=== PATIENT | male | born 1955 | race Caucasian/White ===

== ENCOUNTER → 2019-08-23 16:24 | Outpatient (CLI) | payer OTHER, MEDICAID, SELFPAY ==
--- NOTE | 2019-08-23 | DI.RAD.S_ITS ---
PROCEDURE: XR CHEST 2V INDICATIONS: Chest pain, dyspnea TECHNIQUE: 2 views of the chest were acquired. COMPARISON: None. FINDINGS: Surgical changes and devices: None. Lungs and pleura: There may be a small developing area of airspace disease at the right medial lung base. No large effusion or definite pneumothorax is appreciated. Scarring within the lung apices. Mediastinum: Mediastinal contours are normal. Heart size is normal. Bones and chest wall: No suspicious bony abnormalities. Soft tissues appear unremarkable. IMPRESSION: Possible developing right lower lobe atelectasis versus pneumonia. Please correlate clinically. Note: Findings discussed with Dr. Clarke at approximately 1712 hours (PST) on 08/23/19. Dictated by: Frank Rios M.D. on 08/23/2019 at 16:10 Approved by: Frank Rios M.D. on 08/23/2019 at 16:13
[2019-08-23 18:35] LABS: Estimated Glomerular Filt Rate > 60.0 mL/min (>60)
[2019-08-23 19:25] LABS: D Dimer 596 ng/mL (<230)
== END ==
PROVIDERS: PCP Internal Medicine; Referring Provider Internal Medicine; Visit Provider Internal Medicine
DX: R07.9 Chest pain, unspecified (principal); R06.00 Dyspnea, unspecified; Z79.899 Other long term (current) drug therapy
CPT/HCPCS: 36415; 71046; 82565; 85379

== ENCOUNTER → 2019-08-24 13:16 | Outpatient (CLI) | payer OTHER, MEDICAID, SELFPAY ==
--- NOTE | 2019-08-24 13:23 | DI.CT.S_ITS ---
PROCEDURE: CT ANGIO CHEST INDICATIONS: Abnormal coagulation profile TECHNIQUE: After the administration of intravenous contrast, 2 mm thick sections acquired from the pulmonary apices to the posterior costophrenic angles. 3-dimensional maximum intensity projection (MIP) coronal and sagittal reformats were then acquired through the thorax. For radiation dose reduction, the following was used: automated exposure control, adjustment of mA and/or kV according to patient size. COMPARISON: [facility], CR, XR CHEST 2V, 08/23/2019, 16:26. FINDINGS: Image quality: Excellent. Pulmonary arteries: Pulmonary arteries are normal in size, and demonstrate no intraluminal filling defects to suggest central pulmonary embolism. Lungs and pleura: Lungs are clear. No pleural effusions or pneumothorax. Central and peripheral airways are patent. Mediastinum: Heart size is normal, without pericardial effusion. No mediastinal or hilar adenopathy. Thoracic aorta is normal in caliber and enhancement. Esophagus is normal in caliber, without hiatal hernia. Bones and chest wall: No suspicious bony lesions. Ribs and thoracic spine appear intact throughout. Thyroid gland appears normal where well visualized. No axillary or supraclavicular adenopathy. Abdomen: Visualized upper abdominal solid organs appear normal in the early arterial phase of enhancement. IMPRESSION: Normal for age, source of abnormal coagulation profile is not identified. No pulmonary embolus is found. Dictated by: Angelo Lion M.D. on 08/24/2019 at 13:52 Approved by: Angelo Lion M.D. on 08/24/2019 at 13:54
== END ==
PROVIDERS: PCP Internal Medicine; Referring Provider Internal Medicine; Visit Provider Internal Medicine
DX: R79.1 Abnormal coagulation profile (principal)
CPT/HCPCS: 71275; Q9967

== ENCOUNTER 2019-08-24 15:44 | Observation (INO) | payer OTHER, MEDICAID, SELFPAY ==
[2019-08-24] VITALS (7 sets, daily range): BP systolic 102–142; BP diastolic 63–79; PULSE 51–63; RESP 16–26; TEMP 36.2; O2SAT 95–98; BMI 29.0
--- NOTE | 2019-08-24 16:03 | ED_ITS ---
HPI - Chest Pain General Chief Complaint: Chest Pain Stated Complaint: HEART ISSUES Time Seen by Provider: 08/24/19 16:03 Source: patient Mode of arrival: Ambulatory History of Present Illness HPI narrative: Otherwise healthy 63-year-old gentleman presents with 6 weeks of worsening exertional dyspnea. Symptoms started with fevers myalgias dyspnea and a concern that he had Covid19. He was tested for this 3 weeks ago and it returned negative. He reports increasing exertional dyspnea was able to walk rapidly for a number of mi 6 weeks ago and yesterday noted that he was barely able to cross the room without developing chest tightness pain through to his back and dyspnea. Symptoms are persistent with normal vital signs including ox ygen saturations in the upper 90s on room air with continued subjective dyspnea. He saw his primary care physician who did an EKG which was unremarkable as well as a chest x-ray which suggested the possibility of a developing right lower lobe pneumonia versus simple atelectasis.. She checked a D-dimer which was elevated and a CT angiogram of the chest was performed today which revealed no pulmonary emboli and no pulmonary parenchymal disease to suggest resolving pneumonia, developing pneumonia or a Covid type pneumonia. His doctor is suggested an outpatient nuclear medicine stress test however the earliest this can be arranged is at least 2 weeks away and with his progressive symptomatic exertional dyspnea patient and his primary care provider felt that ER evaluation and possible hospital admission for further cardiac evaluation would be appropriate. At rest in the emergency room he is complaining of subjective dyspnea, again saturations in the 97% range on room air, he reports that chest tightness worse on the left side radiating up to the left arm at rest with a normal EKG. Pain and tightness are not worse with position and are not reproducible with palpation. He reports no reflux type symptoms, no nausea, diaphoresis, vomiting or diarrhea. He does note increasing confusion. Apparently was in a business meeting yesterday and his noted that he was very scattered and not making sense. In driving home from [place] to [place] he reports getting lost and actually having to ask directions. He also reports significant fatigue, as well as intermittent dizziness but does not describe any peripheral edema or orthopnea He notes that his mother had a 3 way bypass surgery in her early 60s. His father early from emphysema. Himself is a lifelong nonsmoker. Related Data Allergies Allergy/AdvReac Type Severity Reaction Status Date / Time No Known Drug Allergies Allergy Verified 08/24/19 17:25 Review of Systems Review of Systems Narrative: Pertinent positive and negative findings as per HPI Remainder of review of systems is otherwise unremarkable for ENT: No sore throat, neck pain, ear pain, no change to taste or smell : Dysuria, hematuria, flank pain MS: joint swelling or warmth Skin: Rashes, nonhealing lesions Neuro: Syncope, tingling Psych: Depression, anxiety, suicidal ideation Endocrine: Fatigue, heat or cold intolerance, very dry skin Heme: Easy bruising or bleeding Allergy: Seasonal rhinorrhea, itchy eyes Patient History Medical History Healthy adult (Acute) Social History Smoking Status: Never smoker Smoking Status: Never smoker alcohol intake frequency: 0-2 drinks per day Exam Narrative Exam Narrative: General: Healthy appearing, in no acute distress. Able to give a complete and coherent history. Well-nourished well-developed HEENT: Moist mucous membranes, normal sclera with reactive pupils, Neck: No JVD, supple Respiratory: Lungs are clear to auscultation, no wheezing no rales no rhonchi. Full and symmetrical air movement Cardiac: Regular rate and rhythm no murmurs no bruits Abdomen: Soft nontender good bowel tones, no flank pain Skin: Warm and dry, no rashes Neurologic: Grossly neurologically intact with no obvious asymmetries or abnormalities Extremities: No trauma, well perfused Psych: Cooperative, appropriate insight and affect Initial Vital Signs Initial Vital Signs: Vital Signs Pulse Rate 63 08/24/19 15:47 Respiratory Rate 16 08/24/19 15:47 Blood Pressure 142/79 H 08/24/19 15:47 Pulse Oximetry 98 08/24/19 15:47 Course Orders Ordered: ED Orders 08/24/19 16:01 EKG-12 Lead Stat 08/24/19 17:00 Complete Blood Count AUTO DIFF Stat Comprehensive Metabolic Panel Stat Lipase Stat Magnesium Stat Troponin & CK Cardiac Panel Stat Sodium Chloride (Normal Saline 0.9%) 1,000 mls @ 150 mls/hr IV CONT KENNY Last Admin: 08/24/19 17:13 Dose: 150 mls/hr Documented by: VIRAJ Discontinued Medications Aspirin (Aspirin Chew) 324 mg PO NOW ONE Stop: 08/24/19 16:33 Last Admin: 08/24/19 17:06 Dose: 324 mg Documented by: VIRAJ Nitroglycerin (Nitrostat) 0.4 mg SL NOW ONE Stop: 08/24/19 16:34 Last Admin: 08/24/19 17:14 Dose: 0.4 mg Documented by: VIRAJ Nitroglycerin (Nitro-Bid) 0.5 inch TOP NOW ONE Stop: 08/24/19 17:25 Last Admin: 08/24/19 17:29 Dose: 0.5 inch Documented by: VIRAJ Vital Signs Vital signs: Vital Signs - 8 hr 08/24/19 15:47 08/24/19 17:29 Pulse Rate 63 60 Respiratory Rate 16 Blood Pressure 142/79 H 102/76 Pulse Oximetry 98 MDM - Chest Pain Medical Records Data Attestation: I reviewed the patient's medical records. Lab Data Attestation: I reviewed the patient's lab results. Result diagrams: 08/24/19 17:00 08/24/19 17:00 Labs: Lab Results 08/24/19 08/24/19 08/24/19 Range/Units 17:00 17:00 17:00 WBC 7.1 (4.5-11.0) X10^3/uL RBC 5.07 (4.5-5.9) X10^6/uL Hgb 15.0 (13.5-17.5) g/dL Hct 44.8 (41-53) % MCV 88.4 (80-100) fL MCH 29.5 (26-34) PG MCHC 33.4 (30-36) % RDW 13.5 (11.6-14.8) % Plt Count 197 (150-400) X10^3/uL Neut % (Auto) 51.4 (50-75) % Lymph % (Auto) 35.9 (25-40) % [place] % (Auto) 9.3 (3-14) % Eos % (Auto) 2.1 (2-4) % Baso % (Auto) 1.3 (0-2) % Neut # (Auto) 3700 (8599-0145) /uL Lymph # (Auto) 2500 (3198-5785) /uL [place] # (Auto) 700 (0-900) /uL Eos # (Auto) 100 (0-450) /uL Baso # (Auto) 100 (0-100) /uL Sodium 138 Cancelled (137-145) mmol/L Potassium 4.6 Cancelled (3.4-5.1) mmol/L Chloride 105 Cancelled (98-107) mmol/L Carbon Dioxide 25 Cancelled (22-32) mmol/L BUN 22 H Cancelled (9-20) mg/dL Creatinine 0.91 Cancelled (0.66-1.25) mg/dL Estimated GFR > 60.0 Cancelled (>60) mL/min BUN/Creatinine Ratio 24.2 H Cancelled (6-22) Glucose 154 H Cancelled (80-110) mg/dL Calcium 9.2 Cancelled (8.4-10.2) mg/dL Magnesium 1.9 Cancelled (1.6-2.3) mg/dL Total Bilirubin 0.8 Cancelled (0.2-1.3) mg/dL AST 41 Cancelled (17-59) IU/L ALT 32 Cancelled (<50) IU/L Alkaline Phosphatase 53 Cancelled (38-126) U/L Total Creatine Kinase 38 L (55-170) U/L CK-MB (CK-2) TNP CK-MB (CK-2) Rel Index TNP Troponin I < 0.012 (0.01-0.034) ng/mL Total Protein 7.8 Cancelled (6.3-8.2) g/dL Albumin 4.3 Cancelled (3.5-5.0) g/dL Globulin 3.5 Cancelled (1.7-4.1) g/dL Albumin/Globulin Ratio 1.2 Cancelled (1.0-2.8) Lipase 63 (23-300) U/L Urine Dip Bedside Urine Glucose Negative Bedside Urine Bilirubin - Negative Bedside Urine Ketone - Negative Urine Specific [place] 1.015 Bedside Urine Occult Blood - Negative Bedside Urine pH 5.5 Bedside Urine Protein - Negative Bedside Urine Urobilinogen - Negative Bedside Urine Nitrite - Negative Bedside Urine Leukocytes - Negative Esterase Imaging Data Chest x-ray August 22: Radiologist's Impression: IMPRESSION: Possible developing right lower lobe atelectasis versus pneumonia. Please correlate clinically. Note: Findings discussed with Dr. Clarke at approximately 1712 hours (PST) on 08/23/19. Dictated by: Frank Rios M.D. on 08/23/2019 at 16:[address]: Radiologist's Impression: IMPRESSION: Normal for age, source of abnormal coagulation profile is not identified. No pulmonary embolus is found. Dictated by: Angelo Lion M.D. on 08/24/2019 at 13:52 ECG Data Attestation: I personally reviewed and interpreted this ECG as follows: Interpretation: Normal sinus rhythm at a rate of [address] T wave changes Normal axis normal intervals MDM Narrative Medical decision making narrative: Exertional dyspnea progressive to the point t hat he is having difficulty walking across the room over a period of 6 weeks. Because of these symptoms initially he was concerned that he had developed Covid19, the initial test was negative . Will test again today with the fatigue confusion and weakness persistent symptoms are conceivable. He clearly does not have a COVID-19 pneumonia nor a pulmonary embolism. Given his progressive symptoms and symptoms at rest now expedited cardiac risk stratification with admission nuclear medicine study and possible echocardiogram are appropriate. 1725 single sublingual nitro has helped with the chest pressure/tightness and dyspnea sensation. 1/2 inch of nitropaste is placed. 1755 Dr. Goldstein accepts admit, obs status for CP work up. Discharge Plan Departure Patient Disposition: Admitted as Observation Clinical Impression: Exertional dyspnea Chest pain Qualifiers: Chest pain type: unspecified Qualified Code(s): R07.9 - Chest pain, unspecified Referrals: Xiao Salinas MD [Primary Care Provider] -
[2019-08-24] MEDS: ASPIRIN 81 MG CHEW TAB 324 MG PO (17:06)
[2019-08-24] MEDS: SODIUM CHLORIDE 0.9% 1,000 ML 150 ML IV (17:13)
[2019-08-24] MEDS: NITROGLYCERIN 0.4 MG SL TAB SL (17:14)
[2019-08-24 17:25] LABS: Add Manual Diff / Slide Review NO; Basophils Absolute Auto 100 /uL (0-100); Basophils Percent Auto 1.3 % (0-2); Eosinophils Absolute Auto 100 /uL (0-450); Eosinophils Percent Auto 2.1 % (2-4); Hematocrit 44.8 % (41-53); Lymphocytes Absolute Auto 2500 /uL (1100-4500); Lymphocytes Percent Auto 35.9 % (25-40); Mean Corpuscular HGB Conc 33.4 % (30-36); Mean Corpuscular Hemoglobin 29.5 PG (26-34); Mean Corpuscular Volume 88.4 fL (80-100); Monocytes Absolute Auto 700 /uL (0-900); Monocytes Percent Auto 9.3 % (3-14); Neutrophils Absolute Auto 3700 /uL (1500-7000); Neutrophils Percent Auto 51.4 % (50-75); Platelet Count 197 X10^3/uL (150-400); Red Blood Cell Count 5.07 X10^6/uL (4.5-5.9); Red Cell Distribution Width 13.5 % (11.6-14.8); White Blood Cell Count 7.1 X10^3/uL (4.5-11.0)
[2019-08-24] MEDS: NITROGLYCERIN OINT 1 INCH/GM OINT...G. 0.5 INCH TOP (17:29)
[2019-08-24 17:31] LABS: Alanine Aminotransferase 32 IU/L (<50); Albumin 4.3 g/dL (3.5-5.0); Albumin Globulin Ratio 1.2 (1.0-2.8); Alkaline Phosphatase 53 U/L (38-126); Aspartate Aminotransferase 41 IU/L (17-59); BUN Creatinine Ratio 24.2 (6-22); Bilirubin Total 0.8 mg/dL (0.2-1.3); Blood Urea Nitrogen 22 mg/dL (9-20); Calcium 9.2 mg/dL (8.4-10.2); Carbon Dioxide 25 mmol/L (22-32); Chloride 105 mmol/L (98-107); Creatine Kinase 38 U/L (55-170); Estimated Glomerular Filt Rate > 60.0 mL/min (>60); Globulin 3.5 g/dL (1.7-4.1); Glucose 154 mg/dL (80-110); Lipase 63 U/L (23-300); Magnesium 1.9 mg/dL (1.6-2.3); Sodium 138 mmol/L (137-145); Total Protein 7.8 g/dL (6.3-8.2)
[2019-08-24 17:32] LABS: HEMOLYSIS 122 (0-50); Potassium 4.6 mmol/L (3.4-5.1)
[2019-08-24 17:42] LABS: Troponin I < 0.012 ng/mL (0.01-0.034)
--- NOTE | 2019-08-24 20:56 | DI.ECHO.S_ITS ---
[facility] +---------+ [facility] +---------+ : : [address] : : : : [id number] : : : : Phone: [phone]+ Echocardiogram Report + + :Name: EDISON CASTANEDA Study Date: 08/25/2019 Height: 67 in : :[facility] Weight: 185 lb : : Gender: Male BSA: 2.0 m2 : :: 1955 Age: 63 yrs BP: 123/58 mmHg: :Reason For Study: chest pain : :Ordering Physician: Jason : :Hospitalist Performed By: Rossi Gandara : :Referring: MUNDO ACEVEDO : + + Interpretation Summary The ejection fraction is estimated to be 60-65%. There is mild aortic regurgitation. There is mild tricuspid regurgitation. The right ventricular systolic pressure is estimated to be at least 18 mmHg based on an estimated right atrial pressure of 3 mm Hg. The ascending aorta is mildly enlarged. Procedure: A two-dimensional transthoracic echocardiogram with color flow and Doppler was performed. The study quality was technically adequate. There is no prior echocardiogram noted for this patient. The patient was in normal sinus rhythm during the exam. Left Ventricle: The left ventricle is normal in size. Left ventricular wall thickness is mildly increased. The ejection fraction is estimated to be 60- 65%. There are no focal wall motion abnormalities. Right Ventricle: The right ventricle is at the upper limits of normal in size. The right ventricular systolic function is normal. Atria: The left atrial size is normal. Right atrial size is normal. There is no Doppler evidence for an interatrial shunt. Mitral Valve: The mitral valve is normal in structure and function. There is trace mitral regurgitation. Aortic Valve: The aortic valve is trileaflet. The aortic valve opens well. There is no aortic valve stenosis. There is mild aortic regurgitation. Tricuspid Valve: The tricuspid valve is normal in structure and function. There is mild tricuspid regurgitation. The right ventricular systolic pressure is estimated to be at least 18 mmHg based on an estimated right atrial pressure of 3 mm Hg. Pulmonic Valve: The pulmonic valve is normal in structure and function. There is no pulmonic valvular regurgitation. Great Vessels: The aortic root is normal size. The ascending aorta is mildly enlarged. The IVC is of normal diameter and collapses greater than 50% with a sniff. This suggests a low right atrial pressure of 3 mm Hg. Pericardium/ Pleura There is no pericardial effusion. There is no pleural effusion. MMode/2D Measurements & Calculations LVIDd: 3.9 cm LVOT diam: 2.0 cm LVIDs: 2.8 cm Ao root diam: 3.1 cm FS: 30.0 % asc Aorta Diam: 3.7 cm EPSS: 0.35 cm Ao Arch Diam (Prox Trans): 3.4 cm IVSd: 1.1 cm LVPWd: 1.2 cm LV gutierrez. diameter/BSA (cm/m^2): 2.0 LV sys. diameter/BSA (cm/m^2): 1.4 LA A2 area: 16.7 cm2 RA long axis: 5.3 cm LA A4 area: 15.2 cm2 RA area: 16.6 cm2 LA length (vol): 4.9 cm RA vol: 44.3 ml LA vol: 44.4 ml RA : 22.6 ml/m2 LA vol index: 22.7 ml/m2 RVD1 (basal): 4.0 cm TAPSE: 2.2 cm Doppler Measurements & Calculations Ao V2 max: 143.4 cm/sec LVOT Max Jose Maria: 140.3 cm/sec Ao V2 mean: 87.3 cm/sec LV V1 max P.9 mmHg Ao max P.2 mmHg LV V1 VTI: 26.7 cm Ao mean P.7 mmHg CRISTAL(I,D): 3.3 cm2 Ao V2 VTI: 25.2 cm CRISTAL(V,D): 3.0 cm2 sev ratio: 1.1 CRISTAL indexed to BSA (cm^2/m^2): 1.7 AI P1/2t: 846.7 msec AI dec slope: 134.1 cm/sec2 MV E max jose maria: 57.1 cm/sec TR max jose maria: 199.0 cm/sec MV A max jose maria: 54.6 cm/sec TR max P.8 mmHg MV E/A: 1.0 PA V2 max: 73.2 cm/sec Med Peak E' Jose Maria: 8.5 cm/sec PA V2 mean: 46.2 cm/sec E/E' med: 6.7 PA mean P.0 mmHg Lat Peak E' Jose Maria: 10.2 cm/sec PA pr(Accel): 13.9 mmHg E/E' lat: 5.6 E/e' average: 6.1 MV dec time: 0.24 sec SV(LVOT): 82.1 ml Reading Physician:02:[id number] PM
--- NOTE | 2019-08-24 22:10 | PC.NURSE ---
Pt is A and O x 4, VSS. Pt denies chest pain at this time. He denies all pain and N. LS clear, HR irr irr. Pt refused skin assessment (there is nothing wrong with my skin, let's not be silly) and removing his jeans. He tolerated a snack and beverage. Last BM today and normal per patient. Pt states that he was treated for PNA by a physician in [place], where he lives. Pt states he thinks he and his have COVID 19. He was tested in [place] approx 7 days ago, and the results were negative. He believes he contracted the virus 6 weeks ago at the [employer] in [place].
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
[2019-08-24 23:23] LABS: Troponin I < 0.012 ng/mL (0.01-0.034)
[2019-08-25] VITALS (9 sets, daily range): BP systolic 102–123; BP diastolic 54–78; PULSE 54–78; RESP 16–18; TEMP 36.3–36.9; O2SAT 94–97
[2019-08-25 01:07] LABS: Adenovirus Not Detected (Not Detect); Bordetella pertussis Not Detected (Not Detect); Chlamydophila pneumoniae Not Detected (Not Detect); Coronavirus 229E Not Detected (Not Detect); Coronavirus HKU1 Not Detected (Not Detect); Coronavirus NL 63 Not Detected (Not Detect); Coronavirus OC43 Not Detected (Not Detect); Human Metapneumovirus Not Detected (Not Detect); Human Rhinovirus/Enterovirus Not Detected (Not Detect); Influenza A Not Detected (Not Detect); Influenza B Not Detected (Not Detect); Mycoplasma pneumoniae Not Detected (Not Detect); Parainfluenza Virus 1 Not Detected (Not Detect); Parainfluenza Virus 2 Not Detected (Not Detect); Parainfluenza Virus 3 Not Detected (Not Detect); Parainfluenza Virus 4 Not Detected (Not Detect); Respiratory Syncytial Virus Not Detected (Not Detect)
[2019-08-25 05:52] LABS: Add Manual Diff / Slide Review NO; Basophils Absolute Auto 100 /uL (0-100); Basophils Percent Auto 1.3 % (0-2); Eosinophils Absolute Auto 100 /uL (0-450); Eosinophils Percent Auto 2.2 % (2-4); Hematocrit 42.1 % (41-53); Hemoglobin 14.2 g/dL (13.5-17.5); Lymphocytes Absolute Auto 2000 /uL (1100-4500); Lymphocytes Percent Auto 29.8 % (25-40); Mean Corpuscular HGB Conc 33.7 % (30-36); Mean Corpuscular Hemoglobin 29.8 PG (26-34); Mean Corpuscular Volume 88.3 fL (80-100); Monocytes Absolute Auto 800 /uL (0-900); Monocytes Percent Auto 11.7 % (3-14); Neutrophils Absolute Auto 3800 /uL (1500-7000); Platelet Count 170 X10^3/uL (150-400); Red Blood Cell Count 4.77 X10^6/uL (4.5-5.9); Red Cell Distribution Width 13.6 % (11.6-14.8); White Blood Cell Count 6.8 X10^3/uL (4.5-11.0)
[2019-08-25 06:10] LABS: Blood Urea Nitrogen 20 mg/dL (9-20); Calcium 8.9 mg/dL (8.4-10.2); Carbon Dioxide 21 mmol/L (22-32); Chloride 110 mmol/L (98-107); Cholesterol 146 mg/dL (140-199); Estimated Glomerular Filt Rate > 60.0 mL/min (>60); Glucose 115 mg/dL (80-110); HDL Cholesterol 24 mg/dL (40-60); HEMOLYSIS 23 (0-50); LDL Cholesterol Calculated 92 mg/dL (<100); Magnesium 1.9 mg/dL (1.6-2.3); Potassium 4.2 mmol/L (3.4-5.1); Sodium 138 mmol/L (137-145); Triglycerides 148 mg/dL (35-150)
[2019-08-25 06:43] LABS: Hemoglobin A1C% w Est Avg Glu 5.8 % (4.0-6.0)
[2019-08-25 06:56] LABS: TSH w/ Reflex to FT4 2.77 uIU/mL (0.47-4.68)
[2019-08-25 07:49] LABS: Creatine Kinase 24 U/L (55-170)
[2019-08-25 08:02] LABS: Troponin I < 0.012 ng/mL (0.01-0.034)
[2019-08-25] MEDS: HEPARIN 5,000 UNIT/ML VIAL 5000 UNIT SUBCUT (08:33)
[2019-08-25] MEDS: FAMOTIDINE 20 MG TABLET PO (08:33)
[2019-08-25] MEDS: NITROGLYCERIN OINT 1 INCH/GM OINT...G. 0.5 INCH TOP ×2 (08:34→15:12)
[2019-08-25] MEDS: SODIUM CHLORIDE 0.9% FLUSH 10 ML IV (08:37)
--- NOTE | 2019-08-25 13:41 | CM.DANOTE ---
Patient is a 63 year old male who was admitted on 08/24/19 for Heart Issues. Pt has [facility] and [facility] for insurance and his PCP is Dr. Xiao Salinas. EMR was reviewed. Per MD, pt with chest pain r/o and currently observation for symptoms and Echo and Stress test ordered. No COVID test needed at this time. 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 Pt has been weaker the past couple weeks and feels that he may be COVID 19 positive although he previously had negative test results. Pt does not anticipate any SW needs at d/c and preference is home once he feels better and spouse can provide transport. Plan: SW to follow closely after Echo and Stress Test to confirm he is safe for d/c home with supportive spouse. 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 No Advance Directives on File No History Provided By Patient,Medical Record Has Patient been admitted in last 30 No days? Prior Living Arrangements House Household Members spouse,children Type of transporation used prior to Drives own vehicle admit Independent with ADL's Yes Is patient alert and oriented? Yes Comment Likely home at d/c pending Echo and Stress test Barriers to Discharge No Discharge Plan Home Transportation Arrangement Spouse available to provide transport home Referrals Initiated None needed Review Status In Process Please Provide Date Initial DC 08/25/19 Assessment Was Performed Next Review Type Continued Stay Review
--- NOTE | 2019-08-25 14:11 | PC.NURSE ---
Patient back from stress test, denies chest pain and nausea. Does report shortness of breath, which patient reports he's had for the last month. LS clear, sats on RA 95-97%.
--- NOTE | 2019-08-25 17:26 | PM.DS.1 ---
History of Present Illness History of Present Illness Date Patient Seen: 08/24/19 Chief complaint: HEART ISSUES Narrative: Written by Bebo ESCOBEDO: Mr. Mohsen Zayas is a 63-year-old male with no significant medical history who presents to the ER with progressive exertional dyspnea. The patient states that he has had worsening shortness of breath on exertion over the last 6 weeks. At baseline he has been able to walk extensively without shortness of breath and yesterday states he gets short of breath walking across the room. He states he and his have both been feeling ill with complaints of fevers, myalgias and fatigue. He tested negative for COVID-19 3 weeks ago. The patient began having left chest pain and tightness radiating to his left arm and back and was evaluated by his PCP who sent him and for imaging and was thought to be pneumonia and was prescribed azithromycin. He has taken the medication as directed with noted improvement and has had ongoing chest pain and dyspnea at rest. At the present time the patient denies fevers or chills has no headache and is no longer having dizziness. He has a slight chest pain that he describes lower chest over the left and right lower sternal order and sharp pains in the back. He denies cough and has no nausea or vomiting or heartburn. He states his last bowel movement was yesterday and reports no difficulty with urinating and does not get up at night to urinate. Upon arrival to the ER the patient is afebrile with temperature 97.2?, heart rate of 63, blood pressure 142/79 respirations are 16 and saturating 98% on room air. Chest x-ray was taken on 08/22 with radiologist's reading as possible developing right lower lobe atelectasis versus pneumonia. A CT is obtained finding no pulmonary embolism and no parenchymal disease. Twelve lead EKG finds sinus Arpan at a rate of 59, inverted T-waves in lead 3 and flat T-waves in AVF., normal axis, no block or ectopy. On laboratory analysis the patient has white count of 7.1, hemoglobin of 15.0, hematocrit of 44.8, platelets of 197. His electrolytes are all within normal limits and has a BUN of 24 and creatinine is 0.91. His nonfasting glucose is 154. His calcium of 9.2 new magnesium 1.9. His liver enzymes are all within normal limits and lipase is 63 his albumin is 4.3. His elevated D-dimer at 596. His total CK is 38 his troponin is less than 0.012. In the ER the patient is treated with aspirin 324 mg, 1 sublingual nitro and topical nitroglycerin 1/2 inch. Patient is admitted to the medicine service for rule out ACS. Discharge Providers Provider Date of admission: 08/24/19 19:37 Discharge Date: 08/29/19 Primary care physician: Xiao Salinas MD Discharge provider: Almita Hopkins DO Summary Hospital Course Discharge Diagnosis: 1. Acute atypical chest pain and dyspnea on exertion, rule out acute coronary syndrome, present on admission. Atypical chest pain resolved. 2. Prediabetes, chronic, present on admission. Stable. Hospital Course: Mohsen Zayas is a 63-year-old male who is otherwise in good health who presented to the ED for progressive exertional dyspnea over 6 weeks and chest pain for 2 days. 1. Acute atypical chest pain and dyspnea on exertion, rule out acute coronary syndrome, present on admission. Atypical chest pain resolved. -Patient presented with progressive exertional dyspnea x 6 weeks and atypical chest pain of bilateral lower sharp chest pain radiating to the back x 2 days. Patient has no personal cardiac history but family history of mother with coronary artery disease status post CABG x3 vessels. -D-dimer elevated at 596.CTA chest normal and did not demonstrate PE or aortic dissection. -EKG demonstrated sinus bradycardia with inverted T-waves in lead 3 and flat T-wave in AVF without acute ischemic changes such as ST elevation or depression. -Serial troponin < 0.012 x 3. -Chest pain improved with nitroglycerin 0.4 SL and resolved with nitroglycerin 0.5 inch paste in ED. -Received ranitidine for possible gastric component to atypical chest pain. -Risk stratified with TSH normal at 2.77, hemoglobin A1C at 5.8% indicative of prediabetes, fasting lipid panel which demonstrated excellent lipid control with total cholesterol 146, triglycerides 148, LDL 92 and HDL low at 24. Recommended patient increase omega 3 in diet and/or supplementation. -Echocardiogram demnstrated Normal LV size and function with EF 60-65%, normal RV size and function, mild aortic regurgitation, mild tricuspid regurgitation, RVSP estimated to be at least 18 mmHg, and mildly enlarged ascending aorta. -NM stress demonstrated good exercise capacity (curiously patient had no dyspnea on exertion throughout exercise portion of stress test, therefore, reported dyspnea on exertion may be related to anxiety component?) and no perfusion defect other than diaphragmatic attenuation and consider low probability test. -Screened patient for COVID-19 as he was convinced that all of his symptoms were related to coronavirus and reports viral illness 5 weeks ago that both he and his experienced including fever, chills, myalgias, and shortness of breath/dyspnea on exertion. Patient was previously tested for COVID-19 3 weeks ago which was negative. Repeat COVID-19 negative. 2. Prediabetes, chronic, present on admission. Stable. -Hemoglobin A1c 5.8%. -Counseled patient on lifestyle modification including diet and exercise. Exam Vital Signs (past 8 hours): - 08/25/19 12:00 08/25/19 12:21 08/25/19 15:30 Temperature 98.2 F 98.5 F Pulse Rate 65 70 Respiratory Rate 18 18 Blood Pressure 117/78 115/77 Pulse Oximetry 97 97 95 Oxygen Delivery Method Room Air Oxygen Flow Rate 0 Narrative Exam Narrative: General: Older male sitting in bed and in no acute distress, well-developed, well-nourished, very anxious, inquisitive and perseverates, otherwise appropriately interactive. HEENT: Normocephalic, atraumatic. External ears without defect. Pupils equal, round, and reactive to light. Anicteric sclerae, moist conjunctivae, and no lid lag. Oropharynx free of erythema and cobble stoning with moist mucosa. Neck: Supple with full range of motion. No jugular venous distension. No bruits. No lymphadenopathy or thyromegaly. Cardiovascular: Regular rate and rhythm without murmurs, rubs, or gallops appreciated. Pulmonary: Clear to auscultation bilaterally without crackles, wheezes, or rhonchi. Normal respiratory effort with no use of accessory muscles. Abdomen: Soft, bowel sounds present, nontender, nondistended. No hepatosplenomegaly or masses appreciated. Extremities: No clubbing, cyanosis, or edema. Skin: Normal temperature, turgor, and texture; no rash, ulcers, or subcutaneous nodules appreciated. Neurological: Cranial nerves grossly intact. Psychiatric: Anxious mood and affect. Perseverates. Alert and oriented to person, place, and time. Mild cognitive impairment with short-term memory recall deficit. Objective Labs Result Diagrams: 08/25/19 05:30 08/25/19 05:30 Labs: Laboratory Results - last 24 hr 08/24/19 08/24/19 08/24/19 17:00 22:50 23:45 WBC RBC Hgb Hct MCV MCH MCHC RDW Plt Count Neut % (Auto) Lymph % (Auto) [place] % (Auto) Eos % (Auto) Baso % (Auto) Neut # (Auto) Lymph # (Auto) [place] # (Auto) Eos # (Auto) Baso # (Auto) Sodium 138 Potassium 4.6 Chloride 105 Carbon Dioxide 25 BUN 22 H Creatinine 0.91 Estimated GFR > 60.0 BUN/Creatinine Ratio 24.2 H Glucose 154 H Hemoglobin A1c Calcium 9.2 Magnesium 1.9 Total Bilirubin 0.8 AST 41 ALT 32 Alkaline Phosphatase 53 Total Creatine Kinase 38 L CK-MB (CK-2) TNP CK-MB (CK-2) Rel Index TNP Troponin I < 0.012 < 0.012 Total Protein 7.8 Albumin 4.3 Globulin 3.5 Albumin/Globulin Ratio 1.2 Triglycerides Cholesterol LDL Cholesterol, Calc HDL Cholesterol Lipase 63 TSH Chlamy pneumoniae PCR Not detected Adenovirus (PCR) Not detected B.parapertussis DNA PCR Not detected Coronavirus OC43 (PCR) Not detected Coronavirus HKU1 (PCR) Not detected Coronavirus 229E (PCR) Not detected Coronavirus NL63 (PCR) Not detected Human Metapneumovir PCR Not detected Influenza Type A (PCR) Not detected Influenza Type B (PCR) Not detected M. pneumoniae (PCR) Not detected Parainfluenza 1 (PCR) Not detected Parainfluenza 2 (PCR) Not detected Parainfluenza 3 (PCR) Not detected Parainfluenza 4 (PCR) Not detected RSV (PCR) Not detected Entero/Rhino (PCR) Not detected 08/25/19 08/25/19 08/25/19 05:30 05:30 05:30 WBC 6.8 RBC 4.77 Hgb 14.2 Hct 42.1 MCV 88.3 MCH 29.8 MCHC 33.7 RDW 13.6 Plt Count 170 Neut % (Auto) 55.0 Lymph % (Auto) 29.8 [place] % (Auto) 11.7 Eos % (Auto) 2.2 Baso % (Auto) 1.3 Neut # (Auto) 3800 Lymph # (Auto) 2000 [place] # (Auto) 800 Eos # (Auto) 100 Baso # (Auto) 100 Sodium 138 Potassium 4.2 Chloride 110 H Carbon Dioxide 21 L BUN 20 Creatinine 0.91 Estimated GFR > 60.0 BUN/Creatinine Ratio 22.0 Glucose 115 H Hemoglobin A1c 5.8 Calcium 8.9 Magnesium 1.9 Total Bilirubin AST ALT Alkaline Phosphatase Total Creatine Kinase CK-MB (CK-2) CK-MB (CK-2) Rel Index Troponin I Total Protein Albumin Globulin Albumin/Globulin Ratio Triglycerides 148 Cholesterol 146 LDL Cholesterol, Calc 92 HDL Cholesterol 24 L Lipase TSH Chlamy pneumoniae PCR Adenovirus (PCR) B.parapertussis DNA PCR Coronavirus OC43 (PCR) Coronavirus HKU1 (PCR) Coronavirus 229E (PCR) Coronavirus NL63 (PCR) Human Metapneumovir PCR Influenza Type A (PCR) Influenza Type B (PCR) M. pneumoniae (PCR) Parainfluenza 1 (PCR) Parainfluenza 2 (PCR) Parainfluenza 3 (PCR) Parainfluenza 4 (PCR) RSV (PCR) Entero/Rhino (PCR) 08/25/19 08/25/19 05:30 05:30 WBC RBC Hgb Hct MCV MCH MCHC RDW Plt Count Neut % (Auto) Lymph % (Auto) [place] % (Auto) Eos % (Auto) Baso % (Auto) Neut # (Auto) Lymph # (Auto) [place] # (Auto) Eos # (Auto) Baso # (Auto) Sodium Potassium Chloride Carbon Dioxide BUN Creatinine Estimated GFR BUN/Creatinine Ratio Glucose Hemoglobin A1c Calcium Magnesium Total Bilirubin AST ALT Alkaline Phosphatase Total Creatine Kinase 24 L CK-MB (CK-2) TNP CK-MB (CK-2) Rel Index TNP Troponin I < 0.012 Total Protein Albumin Globulin Albumin/Globulin Ratio Triglycerides Cholesterol LDL Cholesterol, Calc HDL Cholesterol Lipase TSH 2.77 Chlamy pneumoniae PCR Adenovirus (PCR) B.parapertussis DNA PCR Coronavirus OC43 (PCR) Coronavirus HKU1 (PCR) Coronavirus 229E (PCR) Coronavirus NL63 (PCR) Human Metapneumovir PCR Influenza Type A (PCR) Influenza Type B (PCR) M. pneumoniae (PCR) Parainfluenza 1 (PCR) Parainfluenza 2 (PCR) Parainfluenza 3 (PCR) Parainfluenza 4 (PCR) RSV (PCR) Entero/Rhino (PCR) Discharge Plan Discharge Plan Patient Disposition: Home Discharge comment: You are being discharged home. Your chest pain is not related to your heart. Your EKG, echocardiogram and nuclear medicine stress test were all normal and did not show any signs of previous heart attack or impending heart attack. You are prediabetic and recommend 5-10% weight loss especially in your mid section. Your HDL or good cholesterol was slightly low and recommend fish oil either naturally by diet (avocado, cold water fish, nuts) or supplementation (omega 3). Your blood pressure was elevated initially and your ascending aorta is mildly enlarged indicative of uncontrolled high blood pressure which should improve with weight loss as well. If your blood pressure does not improve with weight loss highly recommend implementing a blood pressure medication. Please follow-up with your primary care physician regarding your hospitalization in the next 1-2 weeks. Your COVID-19 test was negative. Discharge orders & Medications Prescriptions: Discontinued azithromycin 250 mg tablet RF: 0 Follow up/Referrals: Xiao Salinas MD [Primary Care Provider] - 2 Weeks Diet/Activity/Treatments Diet: Carb-consistent/Diabetic, Low-fat, Low-sodium and Low-cholesterol Activity: Activity as tolerated Visit Report/Discharge Packet Instructions: High-density Lipoprotein Cholesterol, The Mediterranean Diet and Good Health, The DASH Diet, DI for Prediabetes Discharge Data Primary Care Provider: Xiao Salinas Attending Provider: Bebo Goldstein Admit Date/Time: 08/24/19 19:37 Discharges patient from system. Discharge Date/Time: 08/25/19 18:40 Quality VTE Deep Vein Thrombosis/Pulmonary Embolism Present on Admission: No
[2019-08-25 18:15] LABS: COVID19 -Nasal RAPID Negative (Negative)
--- NOTE | 2019-08-26 06:26 | DI.NM.S_ITS ---
DATE OF SERVICE: PROCEDURE: Exercise perfusion study. DATE OF STUDY: 08/25/2019. INDICATIONS: Exertional shortness of breath, chest pain. RADIOPHARMACEUTICAL: 25.1 millicurie technetium-99m Myoview IV was injected at stress. Please note this is a exercise stress perfusion study only. CARDIAC STRESS: The patient underwent exercise perfusion study under the supervision of an attending staff. He walked on [place] protocol for 10 minutes, achieved 92% of target heart rate, normal blood pressure response, 12.8 METS of workload and functional aerobic impairment -15%. No ischemic symptoms. Baseline EKG revealed sinus rhythm with diffuse concave ST elevations suggestive of repolarization changes without any significant HI segment depression or elevation. During peak exercise, there was some asymmetrical T-wave inversion in inferior lateral leads and nonspecific ST depression. No significant arrhythmia seen. RAW DATA: There is evidence of diaphragmatic tissue attenuation. GATED STUDY: Stress LV ejection fraction 77% without any obvious wall motion abnormalities. Lung heart ratio 0.24, which is within normal limits. MYOCARDIAL PERFUSION SCAN: Stress supine images revealed a small to moderate size mildly decreased perfusion of base to mid inferior wall and basal anterior wall which got completely resolved during prone images suggestive of tissue attenuation artifact. On prone images, no convincing ischemia infarction pattern. Perfusion appears to be normal. CONCLUSION: I will call this study likely a normal myocardial perfusion study with evidence of tissue attenuation artifact, likely diaphragmatic which got resolved during prone images. Prone images revealed normal myocardial perfusion. Good exercise tolerance. Functional aerobic impairment -15%. Preserved left ventricular function. Baseline repolarization changes. No significant arrhythmias. Normal hemodynamic response. Overall this is a low risk myocardial perfusion scan. Mohsen Zayas - NELDA/jonn/dalila doc#: [id number]/job#: [id number] dd: 08/25/2019 17:04:00 dt: 08/26/2019 06:19:00 DICTATING MD/COPIES TO: Deja Lim MD COPIES MNE: MICHEL;
== END 2019-08-25 18:40 | disposition home or self-care (01) ==
LOC: ED 18:51 → AC 19:38
PROVIDERS: Internal Medicine; Nurse Practitioner Adult Health; Admitting Provider Internal Medicine; Emergency Provider Emergency Medicine; PCP Internal Medicine; Referring Provider Emergency Medicine; Visit Provider Internal Medicine
DX: R07.9 Chest pain, unspecified (principal); Z11.59 Encounter for screening for other viral diseases; R06.02 Shortness of breath; R03.0 Elevated blood-pressure reading, without diagnosis of hypertension; R79.1 Abnormal coagulation profile
CPT/HCPCS: 36415; 71275; 78451; 80048; 80053; 80061; 81003; 82550; 83036; 83690; 83735; 84443; 84484; 85025; 87633; 87635; 93005; 93017; 93306; 96360; 96361; 96372; 99285; G0378; A9270; A9502; J1644; Q9967